=== PATIENT | female | born 1960 | race Caucasian/White ===

== ENCOUNTER 2017-02-03 19:09 | Emergency (ER) | payer OTHER ==
[~2017-02-03] VITALS: Ht 157.5 cm; Wt 81.2 kg
[~2017-02-03 19:09] MED LIST: ALDACTONE25 MG PO; ASPIR 8181 MG PO; ATENOLOL 100MG100 M2 PO; AZOR 5-40 MG T1 EACH PO; BENICAR20 MG PO; BUTALB-APAP-CA1 EACH PO; BUTRANS1 EACH TD; CARVEDILOL12.5 MG; COZAAR 25 MG TA25 M1 PO; COZAAR 25 MG TA25 M2 PO; HYDROCHLOROTHIA25 M2 PO; HYDROCODONE-AP1 EAC6 PO; K-DUR 20 MEQ T20 MEQ PO; LASIX 20 MG TAB20 MG; LASIX 20 MG TAB20 MG PO; LEVAQUIN 500 M500 MG PO; MEDROLDOSEPACK PO; NEXIUM20 MG PO; NEXIUM40 MG PO; NORCO 5-325 TA1 EACH PO; NORTRIPTYLINE H25 M3 GT; NORVASC10 MG; ONDANSETRON HCL4 M2 PO; ONDANSETRON ODT4 MG PO; PERCOCET 5-3251 EACH PO; PHENERGAN 25 MG25 M1 PO; POTASSIUM20 PO; PRILOSEC 20 MG20 MG PO; TENORMIN50 MG PO; WELLBUTRIN SR150 MG PO; ZOCOR; ZOFRAN ODT4 MG PO; ZOFRAN4 MG PO; ZOLOFT25 MG PO
[2017-02-03] MEDS ORDERED: HYDRALAZINE PO (19:19)
[2017-02-03] MEDS ORDERED: ZANAFLEX2 MG (19:19)
[2017-02-03 19:58] LABS: URINE BILIRUBIN NEGATIVE (Negative); URINE BLOOD NEGATIVE (Negative); URINE CLARITY CLEAR; URINE COLOR YELLOW; URINE GLUCOSE-RANDOM NEGATIVE (Negative); URINE KETONES NEGATIVE (Negative); URINE LEUKOCYTES TRACE (Negative); URINE NITRITE NEGATIVE (Negative); URINE PROTEIN NEGATIVE (Negative); URINE SPECIFIC GRAVITY 1.015 (1.005-1.030); URINE UROBILINOGEN 0.2 E.U./dl (0.2-1.0)
[2017-02-03 20:04] LABS: ABSOLUTE BASOPHILS 0.1 thou/uL (0.0-0.2); ABSOLUTE EOSINOPHILS 0.3 thou/uL (0.0-0.7); ABSOLUTE LYMPHOCYTES 2.8 thou/uL (0.8-5.3); ABSOLUTE NEUTROPHILS 8.3 thou/uL (1.6-8.1); BASOPHILS 0.9 %; EOSINOPHILS 2.8 %; HEMATOCRIT 39.6 % (37.0-47.0); HEMOGLOBIN 13.5 gm/dL (12.0-15.0); LYMPHOCYTES 22.2 %; MCH 30.5 pg (26.0-34.0); MCV 89.7 fL (80.0-100.0); MONOCYTES 7.9 %; MPV 8.6 fl. (7.2-11.1); NUCLEATED RBCS 0 /100WBC; PLATELET COUNT* 293 thou/uL (150-400); POLYS 66.2 %; RBC 4.41 mil/uL (4.20-5.00); RDW-CV 13.5 % (10.5-14.5); WBC 12.5 thou/uL (4.0-11.0)
[2017-02-03 20:05] LABS: AMP/METHAMP Negative (Negative); BARBITURATES POSITIVE (Negative); BENZODIAZEPINES Negative (Negative); COCAINE Negative (Negative); METHADONE Negative (Negative); OPIATES Negative (Negative); PCP Negative (Negative); THC Negative (Negative)
[2017-02-03 20:07] LABS: CASTS None Seen /LPF (None Seen); CRYSTALS None Seen /LPF (None Seen); MUCUS None Seen strn/LPF (None Seen); SQUAMOUS >10 Many /LPF (0-3)
[2017-02-03 20:08] LABS: BACTERIA 1-9 Few /HPF (None Seen); URINE RBC None Seen /HPF (0-2); URINE WBC 0-5 Rare /HPF (0-5)
[2017-02-03 20:11] LABS: ANION GAP 6 mmol/L (7-16); BUN 17 mg/dL (7-18); CALCIUM 8.1 mg/dL (8.5-10.1); CHLORIDE 103 mmol/L (98-107); CO2 31 mmol/L (21-32); CREATININE 0.8 mg/dL (0.6-1.3); GLUCOSE 107 mg/dL (70-99); POTASSIUM 3.3 mmol/L (3.5-5.1); SODIUM 140 mmol/L (136-145)
[2017-02-03 20:21] LABS: ALBUMIN 3.7 g/dL (3.4-5.0); ALKALINE PHOSPHATASE 114 U/L (46-116); LIPASE 98 U/L (73-393); SGOT 15 U/L (15-37); SGPT 27 U/L (30-65); TOTAL BILIRUBIN 0.1 mg/dL (<0.1-1.0); TOTAL PROTEIN 7.4 g/dL (6.4-8.2); TROPONIN-I LEVEL <0.06 ng/mL (<0.06)
[2017-02-03 21:30] VITALS: BP 149/84
--- NOTE | 2017-02-04 13:49 | EKG ---
[place] [address] ELECTROCARDIOGRAM REPORT Name: JAILENELUPILLO MISAEL Room: [facility]#: [id number] Admission: 02/03/17 Attend Phys: Discharge: 02/03/17 Date of : 58 Report #: [id number] THIS REPORT FOR: //name// [facility] ED Test Date: 2017-02-03 Test Time: 20:29:16 Pat Name: LUPILLO DENT Department: Room: Gender: F [employer]: SADIA : 1960 Requested By: Clarissa Solis Order Number: [id number] MD: Pete Quintana Measurements Intervals [place] Rate: 93 P: 55 HI: 150 QRS: 20 QRSD: 81 T: 19 QT: 358 QTc: 446 Interpretive Statements Sinus rhythm Probable left atrial enlargement Low voltage, precordial leads Compared to ECG 02/12/2014 03:13:13 Low QRS voltage now present Sinus bradycardia no longer present Electronically Signed On 02-04-2017 13:48:57 PEDIATRIC AUDIOLOGIST by Pete Quintana [email or web address] <ELECTRONICALLY SIGNED> By: Peet Quintana MD, [facility] 02/04/17 1348 28 28 Pete Quintana MD, [facility] /EPI
== END 2017-02-03 21:30 | disposition home or self-care (01) ==
LOC: M.ERS 19:09
PROVIDERS: Physician Assistant
DX: G43.909 Migraine, unspecified, not intractable, without status migrainosus (principal); I10 Essential (primary) hypertension; J45.909 Unspecified asthma, uncomplicated; E78.5 Hyperlipidemia, unspecified; K21.9 Gastro-esophageal reflux disease without esophagitis; F32.9 Major depressive disorder, single episode, unspecified; Z90.710 Acquired absence of both cervix and uterus; Z98.890 Other specified postprocedural states; Z85.6 Personal history of leukemia; Z91.041 Radiographic dye allergy status; Z88.1 Allergy status to other antibiotic agents; Z88.6 Allergy status to analgesic agent; Z88.0 Allergy status to penicillin; Z88.2 Allergy status to sulfonamides; Z91.013 Allergy to seafood; Z88.5 Allergy status to narcotic agent

== ENCOUNTER 2017-10-05 20:54 | Emergency (ER) | payer OTHER ==
[~2017-10-05] VITALS: Ht 157.5 cm; Wt 81.2 kg
[~2017-10-05 20:54] MED LIST changes: +HYDRALAZINE PO; +ZANAFLEX2 MG
[2017-10-05] MEDS ORDERED: VITAMIN D2000 UNIT PO (22:03)
[2017-10-05] MEDS ORDERED: B12INJ IM (22:03)
[2017-10-05] MEDS ORDERED: BUTALB-APAP-CA1 EACH PO (22:03)
[2017-10-05] MEDS ORDERED: WELLBUTRIN SR150 MG PO (22:03)
[2017-10-05] MEDS ORDERED: ASPIR 8181 MG PO (22:04)
[2017-10-05] MEDS ORDERED: FIORINAL 50-321 EACH PO (23:19)
[2017-10-05 23:23] VITALS: BP 144/80
== END 2017-10-05 23:25 | disposition home or self-care (01) ==
LOC: M.ERS 20:54
DX: G43.909 Migraine, unspecified, not intractable, without status migrainosus (principal); I10 Essential (primary) hypertension; J45.909 Unspecified asthma, uncomplicated; E78.5 Hyperlipidemia, unspecified; K21.9 Gastro-esophageal reflux disease without esophagitis; F32.9 Major depressive disorder, single episode, unspecified; M19.90 Unspecified osteoarthritis, unspecified site; Z91.040 Latex allergy status; Z88.8 Allergy status to other drugs, medicaments and biological substances; Z91.041 Radiographic dye allergy status; Z88.1 Allergy status to other antibiotic agents; Z88.6 Allergy status to analgesic agent; Z88.0 Allergy status to penicillin; Z91.013 Allergy to seafood; Z88.2 Allergy status to sulfonamides; Z90.710 Acquired absence of both cervix and uterus; Z90.89 Acquired absence of other organs

== ENCOUNTER 2018-01-18 04:40 | Emergency (ER) | payer OTHER ==
[~2018-01-18] VITALS: Ht 157.5 cm; Wt 81.7 kg
[~2018-01-18 04:40] MED LIST changes: +B12INJ IM; +FIORINAL 50-321 EACH PO; -LASIX 20 MG TAB20 MG; +VITAMIN D2000 UNIT PO
[2018-01-18] MEDS ORDERED: HYDRALAZINE 2525 MG PO (04:52)
[2018-01-18] MEDS ORDERED: AIMOVIG AU70 MG/1 ML SUBQ (04:54)
[2018-01-18 06:14] VITALS: BP 144/84
== END 2018-01-18 06:14 | disposition home or self-care (01) ==
LOC: M.ERS 04:40
DX: G43.909 Migraine, unspecified, not intractable, without status migrainosus (principal); I10 Essential (primary) hypertension; J45.909 Unspecified asthma, uncomplicated; E78.5 Hyperlipidemia, unspecified; K21.9 Gastro-esophageal reflux disease without esophagitis; F32.9 Major depressive disorder, single episode, unspecified; Z91.040 Latex allergy status; Z91.041 Radiographic dye allergy status; Z88.1 Allergy status to other antibiotic agents; Z88.0 Allergy status to penicillin; Z88.2 Allergy status to sulfonamides; Z88.6 Allergy status to analgesic agent; Z88.8 Allergy status to other drugs, medicaments and biological substances; Z91.013 Allergy to seafood; Z90.710 Acquired absence of both cervix and uterus

== ENCOUNTER 2018-08-25 08:20 | Emergency (ER) | payer OTHER ==
[~2018-08-25] VITALS: Ht 157.5 cm; Wt 81.7 kg
[~2018-08-25 08:20] MED LIST changes: +AIMOVIG AU70 MG/1 ML SUBQ; +HYDRALAZINE 2525 MG PO
[2018-08-25] MEDS ORDERED: IRON INFUSIONS (08:32)
[2018-08-25 09:27] VITALS: BP 144/88
== END 2018-08-25 09:28 | disposition home or self-care (01) ==
LOC: M.ERS 08:20
DX: G43.909 Migraine, unspecified, not intractable, without status migrainosus (principal); R11.2 Nausea with vomiting, unspecified; I10 Essential (primary) hypertension; K21.9 Gastro-esophageal reflux disease without esophagitis; F32.9 Major depressive disorder, single episode, unspecified; E78.5 Hyperlipidemia, unspecified; J45.909 Unspecified asthma, uncomplicated; Z90.710 Acquired absence of both cervix and uterus; Z91.040 Latex allergy status; Z91.041 Radiographic dye allergy status; Z88.0 Allergy status to penicillin; Z88.2 Allergy status to sulfonamides; Z88.6 Allergy status to analgesic agent; Z88.1 Allergy status to other antibiotic agents; Z88.8 Allergy status to other drugs, medicaments and biological substances; Z91.013 Allergy to seafood; Z86.2 Personal history of diseases of the blood and blood-forming organs and certain disorders involving the immune mechanism

== ENCOUNTER 2019-12-04 06:24 | Emergency (ER) | payer OTHER ==
[~2019-12-04] VITALS: Ht 157.5 cm; Wt 78.5 kg
[~2019-12-04 06:24] MED LIST changes: +IRON INFUSIONS
[2019-12-04 08:07] VITALS: BP 150/89
== END 2019-12-04 08:05 | disposition home or self-care (01) ==
LOC: M.ERS 06:24
DX: G43.909 Migraine, unspecified, not intractable, without status migrainosus (principal); I10 Essential (primary) hypertension; K21.9 Gastro-esophageal reflux disease without esophagitis; E78.5 Hyperlipidemia, unspecified; J45.909 Unspecified asthma, uncomplicated; Z90.710 Acquired absence of both cervix and uterus; Z79.899 Other long term (current) drug therapy; Z79.82 Long term (current) use of aspirin; Z91.040 Latex allergy status; Z91.041 Radiographic dye allergy status; Z88.8 Allergy status to other drugs, medicaments and biological substances; Z88.1 Allergy status to other antibiotic agents; Z88.0 Allergy status to penicillin; Z88.2 Allergy status to sulfonamides; Z88.6 Allergy status to analgesic agent

== ENCOUNTER 2020-02-24 15:11 | Emergency (ER) | payer OTHER ==
[~2020-02-24] VITALS: Ht 157.5 cm; Wt 79.4 kg
[~2020-02-24 15:11] MED LIST changes: +MACROBID 100 M100 MG PO
[2020-02-24 15:32] LABS: URINE BILIRUBIN NEGATIVE (Negative); URINE BLOOD NEGATIVE (Negative); URINE CLARITY CLEAR; URINE COLOR YELLOW; URINE GLUCOSE-RANDOM NEGATIVE (Negative); URINE KETONES NEGATIVE (Negative); URINE LEUKOCYTES-REFLEX NEGATIVE (Negative); URINE NITRITE-REFLEX NEGATIVE (Negative); URINE PROTEIN NEGATIVE (Negative); URINE SPECIFIC GRAVITY <= 1.005 (1.005-1.030); URINE UROBILINOGEN 0.2 E.U./dl (0.2-1.0)
[2020-02-24 16:00] LABS: ABSOLUTE BASOPHILS 0.1 thou/uL (0.0-0.2); ABSOLUTE EOSINOPHILS 0.2 thou/uL (0.0-0.7); ABSOLUTE LYMPHOCYTES 2.4 thou/uL (0.8-5.3); ABSOLUTE MONOCYTES 0.8 thou/uL (0.0-1.2); ABSOLUTE NEUTROPHILS 8.9 thou/uL (1.6-8.1); BASOPHILS 1.1 %; EOSINOPHILS 1.3 %; HEMATOCRIT 42.3 % (37.0-47.0); HEMOGLOBIN 14.4 gm/dL (12.0-15.0); LYMPHOCYTES 19.2 %; MCH 30.6 pg (26.0-34.0); MONOCYTES 6.8 %; NUCLEATED RBCS 0 /100WBC; PLATELET COUNT* 295 thou/uL (150-400); POLYS 71.6 %; RDW-CV 13.5 % (10.5-14.5); WBC 12.4 thou/uL (4.0-11.0)
[2020-02-24 16:07] LABS: CALCIUM 8.6 mg/dL (8.5-10.1); CREATININE 0.7 mg/dL (0.6-1.3); POTASSIUM 3.7 mmol/L (3.5-5.1)
[2020-02-24 16:11] LABS: ALBUMIN 3.8 g/dL (3.4-5.0); TOTAL BILIRUBIN 0.3 mg/dL (<0.1-1.0); TOTAL PROTEIN 7.4 g/dL (6.4-8.2)
[2020-02-24] MEDS ORDERED: PHENAZOPYRIDIN200 M2 PO (17:06)
[2020-02-24 17:18] VITALS: BP 142/84
== END 2020-02-24 17:19 | disposition home or self-care (01) ==
LOC: M.ERS 15:11
PROVIDERS: Nurse Practitioner Family
DX: R35.0 Frequency of micturition (principal); I10 Essential (primary) hypertension; E78.5 Hyperlipidemia, unspecified; K21.9 Gastro-esophageal reflux disease without esophagitis; G43.909 Migraine, unspecified, not intractable, without status migrainosus; Z91.040 Latex allergy status; Z88.6 Allergy status to analgesic agent; Z91.041 Radiographic dye allergy status; Z88.1 Allergy status to other antibiotic agents; Z88.2 Allergy status to sulfonamides; Z88.0 Allergy status to penicillin; Z79.899 Other long term (current) drug therapy; Z79.82 Long term (current) use of aspirin; Z90.710 Acquired absence of both cervix and uterus